=== PATIENT | male | born 1970 | race Caucasian/White ===

== ENCOUNTER 2021-06-13 07:04 | Emergency (ER) | payer OTHER ==
[2021-06-13] MEDS ORDERED: CYCLOBENZAPRINE10 MG PO (07:31)
[2021-06-13] MEDS ORDERED: PREDNISONE 20MG20 MG PO (07:31)
[2021-06-13] MEDS ORDERED: NORCO 5-325 TA1 EACH PO (07:32)
== END 2021-06-13 08:14 | disposition home or self-care (01) ==
LOC: FER 07:04
DX: M54.16 Radiculopathy, lumbar region (principal); I10 Essential (primary) hypertension; Z79.899 Other long term (current) drug therapy
CPT/HCPCS: 96372; 99283; J2270; J2405; J7512